=== PATIENT | female | born 1990 | race Caucasian/White ===

== ENCOUNTER 2018-08-25 19:55 | Emergency (ER) | payer OTHER ==
[~2018-08-25] VITALS: Ht 165.1 cm; Wt 81.8 kg
[2018-08-26] MEDS ORDERED: LORazepam 1 MG TABLET PO ONE (00:30)
[2018-08-26] MEDS ORDERED: KETOROLAC TROMETHAMINE 60 MG/2 ML VIAL IM ONE (01:00)
[2018-08-26 01:18] VITALS: BP 116/74
== END 2018-08-26 01:16 | disposition home or self-care (01) ==
LOC: EMS 19:56
DX: F41.9 Anxiety disorder, unspecified (principal); R51 Headache; Z56.3 Stressful work schedule
CPT/HCPCS: 99283; 99284